=== PATIENT | female | born 1965 | race Asian ===

== ENCOUNTER 2023-12-20 13:52 | Outpatient (CLI) | payer MEDICARE, MEDICAID | END 2023-12-20 23:59 | disposition home or self-care (01) | LOC: RAD 13:52 | PROVIDERS: ATTEND Nurse Practitioner Family | DX: M19.042 Primary osteoarthritis, left hand (principal); M25.532 Pain in left wrist; Z12.31 Encounter for screening mammogram for malignant neoplasm of breast | CPT/HCPCS: 73110; 73130 ==